=== PATIENT | male | born 1970 | race African-American/Black ===

== ENCOUNTER 2017-04-10 03:44 | Emergency (ER) | payer OTHER ==
[~2017-04-10] VITALS: Ht 175.3 cm; Wt 104.5 kg
[2017-04-10 03:57] VITALS: BP 121/75
[2017-04-10] MEDS ORDERED: ALBUTEROL SULFATE HFA 90 MCG/PUFF 8 GM INHALER IH ONE (04:15)
[2017-04-11] MEDS ORDERED: AZIT250T9 PO (04:45)
== END 2017-04-10 04:10 | disposition home or self-care (01) ==
LOC: EMS 03:46
DX: J40 Bronchitis, not specified as acute or chronic (principal); Z91.041 Radiographic dye allergy status
CPT/HCPCS: 99281; 99283

== ENCOUNTER 2017-04-11 04:36 | Emergency (ER) | payer OTHER ==
[~2017-04-11] VITALS: Ht 175.3 cm; Wt 104.0 kg
[2017-04-11] MEDS ORDERED: AZIT250T9 PO (04:45)
[2017-04-11] MEDS ORDERED: PredniSONE 20 MG TABLET PO ONE (06:15)
[2017-04-11] MEDS ORDERED: ALBUTEROL SULFATE HFA 90 MCG/PUFF 8 GM INHALER IH ONE (06:15)
[2017-04-11] MEDS ORDERED: ALBUTEROL SULFATE 2.5 MG/0.5 ML NEB SOLUTION NEB ONE (06:15)
[2017-04-11] MEDS ORDERED: IPRATROPIUM BROMIDE 0.5 MG/2.5 ML NEB SOLUTION NEB ONE (06:15)
[2017-04-11 06:17] VITALS: BP 142/67
== END 2017-04-11 06:52 | disposition home or self-care (01) ==
LOC: EMS 04:37
DX: J40 Bronchitis, not specified as acute or chronic (principal); Z91.041 Radiographic dye allergy status
CPT/HCPCS: 94640; 99283; J7512; J7613; J3535

== ENCOUNTER 2018-02-03 01:22 | Emergency (ER) | payer OTHER ==
[~2018-02-03] VITALS: Ht 175.3 cm; Wt 104.5 kg
[~2018-02-03 01:22] MED LIST: AZIT250T9 PO
[2018-02-03] MEDS ORDERED: BENZONATATE 100 MG CAPSULE PO ONE (02:45)
[2018-02-03] MEDS ORDERED: PredniSONE 20 MG TABLET PO ONE (03:00)
[2018-02-03] MEDS ORDERED: GuaiFENesin/D-METHORPHAN [SUGAR-FREE] 200-20MG/10 ML SYRUP UDCUP PO ONE (03:00)
[2018-02-03 03:44] VITALS: BP 137/89
== END 2018-02-03 03:47 | disposition home or self-care (01) ==
LOC: EMS 01:29
DX: J40 Bronchitis, not specified as acute or chronic (principal); G89.29 Other chronic pain
CPT/HCPCS: 71045; 99284; J7512

== ENCOUNTER 2018-11-30 01:03 | Emergency (ER) | payer OTHER ==
[~2018-11-30] VITALS: Ht 175.3 cm; Wt 90.9 kg
[2018-11-30] MEDS ORDERED: HYDROCODONE/ACETAMINOPHEN 5-325 MG TABLET PO ONE (01:30)
[2018-11-30] MEDS ORDERED: KETOROLAC TROMETHAMINE 60 MG/2 ML VIAL IM ONE (01:30)
[2018-11-30] MEDS ORDERED: PENICILLIN V POTASSIUM 500 MG TABLET PO ONE (01:30)
[2018-11-30] MEDS ORDERED: CloNIDine HCL 0.2 MG TABLET PO ONE (02:00)
[2018-11-30 03:20] VITALS: BP 141/76
== END 2018-11-30 03:53 | disposition home or self-care (01) ==
LOC: EMS 01:05
DX: K02.9 Dental caries, unspecified (principal); K04.7 Periapical abscess without sinus; I10 Essential (primary) hypertension; G89.29 Other chronic pain; M54.9 Dorsalgia, unspecified
CPT/HCPCS: 96372; 99284; J1885

== ENCOUNTER 2019-06-28 20:39 | Emergency (ER) | payer OTHER ==
[~2019-06-28] VITALS: Ht 175.3 cm; Wt 109.1 kg
[2019-06-28] MEDS ORDERED: ALBUTEROL SULFATE 5 MG/ML 20 ML NEB SOLN [BULK] NEB ONE (21:30)
[2019-06-28] MEDS ORDERED: IPRATROPIUM BROMIDE 0.5 MG/2.5 ML NEB SOLUTION NEB ONE (21:30)
[2019-06-28 21:31] LABS: EOSINOPHILS % (AUTO) 2.6 % (1.0-6.0); HEMATOCRIT 43.9 % (41-53); HEMOGLOBIN 14.6 g/dL (13.5-17.5); LYMPHOCYTES # (AUTO) 2.2 K/uL (1.0-4.8); LYMPHOCYTES % (AUTO) 32.3 % (22.0-44.0); MEAN CORPUSCULAR HEMOGLOBIN 30.3 pg (26.0-34.0); MEAN CORPUSCULAR HGB CONC 33.3 G/dL (31.0-37.0); MEAN CORPUSCULAR VOLUME 91 fL (80-100); MONOCYTES # (AUTO) 0.8 K/uL (0.1-1.0); MONOCYTES % (AUTO) 11.2 % (2.0-9.0); NEUTROPHILS # (AUTO) 3.7 K/uL (1.8-7.7); NEUTROPHILS % (AUTO) 52.9 % (40.0-70.0); PLATELET COUNT (AUTO) 206 K/uL (150-450); RED BLOOD CELL COUNT(AUTO) 4.82 MIL/uL (4.50-5.90); RED CELL DISTRIBUTION WIDTH 13.1 % (11.5-14.5)
[2019-06-28 21:48] LABS: ANION GAP 10 mmol/L (8-16); CALCIUM, TOTAL 9.3 mg/dL (8.8-10.5); CARBON DIOXIDE 25 mmol/L (22-29); CHLORIDE 101 mmol/L (98-107); CREATININE 1.23 mg/dL (0.60-1.30); GLOMERULAR FILTR. RATE CALC > 60 mL/min (>60); GLUCOSE,RANDOM 105 mg/dL (70-110); POTASSIUM 3.8 mmol/L (3.5-5.1); SODIUM SERUM 136 mmol/L (136-145); UREA NITROGEN, BLOOD 18 mg/dL (7-18)
[2019-06-28 22:12] LABS: ALANINE AMINOTRANSFERASE 27 U/L (12-78); ALKALINE PHOSPHATASE 101 U/L (46-116); ASPARTATE AMINOTRANSFERASE 19 U/L (15-37); BILIRUBIN,TOTAL 0.5 mg/dL (0.1-1.0); CREATINE KINASE, TOTAL ONLY 160 U/L (39-308); TOTAL PROTEIN, SERUM 7.6 g/dL (6.4-8.2)
[2019-06-28] MEDS ORDERED: DiphenhydrAMINE HCL 50 MG/ML VIAL IVP ONE (22:30)
[2019-06-28] MEDS ORDERED: SODIUM CHLORIDE 0.9% 1,000 ML IV ONE (22:30)
[2019-06-28] MEDS ORDERED: METOCLOPRAMIDE HCL 5 MG/ML 2 ML VIAL IVP ONE (22:30)
[2019-06-28] MEDS ORDERED: DEXAMETHASONE SOD PHOS 4 MG/ML 5 ML VIAL IVP ONE (22:30)
[2019-06-28] MEDS ORDERED: ONDANSETRON HCL 4 MG/2 ML VIAL IVP PRN (23:45)
[2019-06-28] MEDS ORDERED: ACETAMINOPHEN 325 MG TABLET PO PRN (23:45)
[2019-06-28] MEDS ORDERED: 0.9% SODIUM CHLORIDE 10 ML SYRINGE IVP PRN (23:45)
[2019-06-29] MEDS ORDERED: ALBUTEROL SULFATE HFA 90 MCG/PUFF 8 GM INHALER IH ONE (00:15)
[2019-06-29 00:41] VITALS: BP 144/88
== END 2019-06-29 01:18 | disposition left against medical advice (07) ==
LOC: EMS 20:40
DX: J45.901 Unspecified asthma with (acute) exacerbation (principal); R07.89 Other chest pain; G89.29 Other chronic pain; M54.9 Dorsalgia, unspecified
CPT/HCPCS: 36415; 71045; 80053; 82550; 83880; 84484; 85025; 93005; 94640 ×2; 96374; 96375; 99284; J1100; J1200; J2765; J7030; 96361; J3535

== ENCOUNTER 2023-08-20 18:22 | Emergency (ER) | payer OTHER ==
[~2023-08-20] VITALS: Ht 175.3 cm; Wt 113.6 kg
[2023-08-20 18:23] VITALS: TEMP 97.9
[2023-08-20] MEDS ORDERED: HYDR25TA84 PO (18:26)
[2023-08-20] MEDS ORDERED: ALBU18HF12 PO (18:26)
[2023-08-20] MEDS: KETOROLAC TROMETHAMINE 30 MG/ML VIAL IM ONE (20:23)
[2023-08-20 20:48] LABS: BASOPHILS % (AUTO) 0.3 % (0.0-2.0); EOSINOPHILS % (AUTO) 3.9 % (1.0-6.0); HEMATOCRIT 43.5 % (41-53); HEMOGLOBIN 14.1 g/dL (13.5-17.5); LYMPHOCYTES # (AUTO) 2.8 K/uL (1.0-4.8); LYMPHOCYTES % (AUTO) 34.7 % (22.0-44.0); MEAN CORPUSCULAR HEMOGLOBIN 29.8 pg (26.0-34.0); MEAN CORPUSCULAR HGB CONC 32.4 G/dL (31.0-37.0); MEAN CORPUSCULAR VOLUME 92 fL (80-100); MONOCYTES # (AUTO) 0.8 K/uL (0.1-1.0); MONOCYTES % (AUTO) 9.4 % (2.0-9.0); NEUTROPHILS # (AUTO) 4.2 K/uL (1.8-7.7); NEUTROPHILS % (AUTO) 51.7 % (40.0-70.0); PLATELET COUNT (AUTO) 229 K/uL (150-450); RED BLOOD CELL COUNT(AUTO) 4.74 MIL/uL (4.50-5.90); RED CELL DISTRIBUTION WIDTH 13.3 % (11.5-14.5); WHITE BLOOD COUNT (AUTO) 8.1 K/uL (4.5-11.0)
[2023-08-20] MEDS: ALBUTEROL SULFATE 2.5 MG/0.5 ML NEB SOLUTION NEB ONE (21:02)
[2023-08-20] MEDS: IPRATROPIUM BROMIDE 0.5 MG/2.5 ML NEB SOLUTION NEB ONE (21:02)
[2023-08-20] MEDS: ALBUTEROL SULFATE HFA 90 MCG/PUFF 8 GM INHALER IH ONE (21:02)
[2023-08-20 21:05] VITALS: PULSE 96; RESP 20; O2SAT 98
[2023-08-20 21:06] LABS: B-TYPE NATRIURETIC PEPTIDE 6 pg/mL (0-100)
[2023-08-20 21:09] LABS: ANION GAP 12 mmol/L (8-16); CALCIUM, TOTAL 9.2 mg/dL (8.8-10.5); CARBON DIOXIDE 24 mmol/L (22-29); CHLORIDE 100 mmol/L (98-107); CREATININE 1.16 mg/dL (0.60-1.30); GLOMERULAR FILTR. RATE CALC > 60 mL/min (>60); GLUCOSE,RANDOM 131 mg/dL (70-110); POTASSIUM 3.6 mmol/L (3.5-5.1); SODIUM SERUM 136 mmol/L (136-145); UREA NITROGEN, BLOOD 15 mg/dL (7-18)
[2023-08-20 21:12] LABS: COVID AG,FIA SOURCE NASAL SWAB
[2023-08-20 21:19] LABS: TROPONIN I-HIGH SENSITIVITY 35 ng/L (<76)
[2023-08-20 21:33] LABS: ALANINE AMINOTRANSFERASE 45 U/L (12-78); ALBUMIN 3.9 g/dL (3.4-5.0); ALKALINE PHOSPHATASE 92 U/L (46-116); ASPARTATE AMINOTRANSFERASE 31 U/L (15-37); BILIRUBIN,TOTAL 0.4 mg/dL (0.1-1.0); CREATINE KINASE, TOTAL ONLY 188 U/L (39-308); TOTAL PROTEIN, SERUM 7.4 g/dL (6.4-8.2)
[2023-08-20 21:36] LABS: SARS-COV2 (COVID) ANTIGEN,FIA Negative (Negative)
[2023-08-20 21:37] LABS: INFLUENZA TYPE A NEGATIVE FOR TYPE A (NEGATIVE); INFLUENZA TYPE B NEGATIVE FOR TYPE B (NEGATIVE)
[2023-08-20] MEDS ORDERED: ALBU2.5V39 NEB (21:38)
[2023-08-20] MEDS ORDERED: NEBU-305 (21:38)
[2023-08-20] MEDS ORDERED: PRED-554 PO (21:38)
[2023-08-20] MEDS: PredniSONE 20 MG TABLET PO ONE (21:42)
[2023-08-20 22:02] VITALS: BP 150/74; PULSE 96; RESP 18
== END 2023-08-20 22:03 | disposition home or self-care (01) ==
LOC: EMS 18:24
DX: J45.909 Unspecified asthma, uncomplicated (principal); G89.29 Other chronic pain; M54.9 Dorsalgia, unspecified
CPT/HCPCS: 99285; 71045; 87426; 80053; 82550; 83880; 84484; 85025; 87804; 36415; 94640; 93005; 96372; J1885; J7512; J3535; J7613

== ENCOUNTER 2024-01-16 22:15 | Emergency (ER) | payer OTHER ==
[~2024-01-16] VITALS: Ht 175.3 cm; Wt 116.4 kg
[~2024-01-16 22:15] MED LIST changes: +ALBU18HF12 PO; +ALBU2.5V39 NEB; +AMLO-258 PO; -AZIT250T9 PO
[2024-01-16 22:38] VITALS: TEMP 98.1
[2024-01-17 00:23] VITALS: BP 157/95; PULSE 96; RESP 16
[2024-01-17] MEDS: OxyCODONE HCL 5 MG IR TABLET PO ONE (00:31)
[2024-01-17] MEDS: DIAZEPAM 5 MG TABLET PO ONE (00:32)
[2024-01-17] MEDS ORDERED: OXYC5 PO (00:36)
== END 2024-01-17 01:26 | disposition home or self-care (01) ==
LOC: EMS 22:15
DX: G89.29 Other chronic pain (principal); M54.50 Low back pain, unspecified; J45.909 Unspecified asthma, uncomplicated; I10 Essential (primary) hypertension
CPT/HCPCS: 99283

== ENCOUNTER 2025-07-03 10:45 | Emergency (ER) | payer OTHER ==
[~2025-07-03] VITALS: Ht 175.3 cm; Wt 97.7 kg
[~2025-07-03 10:45] MED LIST changes: +OXYC5 PO
[2025-07-03 10:48] VITALS: TEMP 98.1
[2025-07-03 12:15] VITALS: BP 136/82; PULSE 91; RESP 18; O2SAT 99
[2025-07-03] MEDS ORDERED: PENI500T2 PO (12:28)
[2025-07-03] MEDS ORDERED: IBUP-1492 PO (12:28)
[2025-07-03] MEDS ORDERED: PERID15L MM (12:28)
[2025-07-03] MEDS ORDERED: PERCT PO (12:28)
[2025-07-03] MEDS: OxyCODONE HCL/ACETAMINOPHEN 5-325 MG TABLET PO ONE (12:41)
[2025-07-03] MEDS: PENICILLIN V POTASSIUM 500 MG TABLET PO ONE (12:59)
== END 2025-07-03 13:02 | disposition home or self-care (01) ==
LOC: EMS 10:45
DX: K02.9 Dental caries, unspecified (principal); J45.909 Unspecified asthma, uncomplicated; I10 Essential (primary) hypertension; G89.29 Other chronic pain; M54.9 Dorsalgia, unspecified
CPT/HCPCS: 99283